=== PATIENT | female | born 1940 | race Caucasian/White ===

== ENCOUNTER 2024-01-27 09:32 | Inpatient (IN) | payer MEDICARE, OTHER, SELFPAY ==
--- NOTE | 2023-12-27 10:08 | CM ---
Addendum entered by Marichuy Somers 01/21/24 13:19:
Spoke again with patient. She will need a rolling walker issued prior to discharge.
Original Note:
Patient is scheduled for an elective R TKR on 01/27/24. Spoke with patient prior to surgery via telephone. Patient had a L TKR (2017) and R THR (2011) at . Reintroduced role of Orthopedic Navigator. Patient reports that she lives alone in a one
story home. There are two steps to enter. She currently functions independently using a cane. She also has a rollator, shower seat and commode. She has had VN services through [facility]. PCP is Preston Palencia.
Discussed orthopedic program and post surgical plans. Reviewed anticipated length of stay and that goal is for her to return home at discharge. Also reviewed outpatient PT. Patient is in agreement with tentative plan but will not have transportation
for outpatient PT and will need VN services (options and PAC data reviewed; patient selects VN). She states that family will stay with her when she first goes home.
Patient will complete online education.
Plan: Orthopedic Navigator will remain available to assist with the care of patient and will reassess discharge needs after surgery.
[2024-01-08 12:46] VITALS: BMI 29.5
[2024-01-08 13:55] LABS: Hematocrit 37.2 % (37.0-47.0); Hemoglobin 12.6 g/dL (12.0-16.0); Mean Corp Hgb Conc. 33.9 g/dL (33.0-37.0); Mean Corpuscular Hgb 30.7 pg (27.0-31.0); Mean Corpuscular Volume 90.7 fL (81.0-99.0); Mean Platelet Volume 11.4 fL (7.4-10.4); Platelet Count 210 10^3/uL (130-400); White Blood Cell Count 5.1 10^3/uL (4.8-10.8)
[2024-01-08 14:29] LABS: ALT (SGPT) 14 U/L (0-35); AST (SGOT) 19 U/L (14-36); Albumin 4.1 g/dl (3.5-5.0); Alkaline Phosphatase 55 U/L (38-126); Blood Urea Nitrogen 15 mg/dl (7-17); Calcium 9.4 mg/dl (8.4-10.2); Carbon Dioxide 28 mmol/L (22-30); Chloride 103 mmol/L (98-107); Estimated Creatinine Clearance 83 ml/min; Glucose 95 mg/dl (70-99); Potassium 4.3 mmol/L (3.5-5.1); Sodium 140 mmol/L (135-145); Total Bilirubin 0.7 mg/dl (0.2-1.3); Total Protein 7.1 g/dl (6.3-8.2); eGFR > 60.00
[2024-01-08 15:02] VITALS: BMI 29.5
[2024-01-09 08:49] LABS: Glycohemoglobin (HgbA1c) 5.5 % (4.0-5.6)
[2024-01-27] VITALS (10 sets, daily range): BP systolic 84–144; BP diastolic 46–75; PULSE 66; BMI 29.5
[2024-01-27] MEDS: TYLENOL 650 MG PO ×3 (10:04→20:12)
[2024-01-27] MEDS: CELEBREX 200 MG PO (10:05)
[2024-01-27] MEDS: NORMOSOL-R 1000 IV ×3 (10:08→15:11)
[2024-01-27] MEDS: DILAUDID 2 MG PO ×2 (16:11→22:27)
--- NOTE | 2024-01-27 16:20 | PTCARENOTE ---
Pt arrived to 2S in bed. Full assessment completed. PRN medication provided for c/o pain to RLE. 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 Christopher wrap to R knee maintained, C/D/I. R hollis becki wrap C/D/I. Pt with
no SCD/David to RLE on admission to the floor due to POA skin tear and R knee DSG. OOB and ambulated in the room/manzo with PT, gait steady Ax1 with the RW. Bed locked and in the lowest position, safety maintained. Oriented to room and call dorota, son
at bedside.
[2024-01-27] MEDS: ASPIRIN 325 MG PO (17:02)
[2024-01-27] MEDS: ANCEF 5 IV (17:02)
[2024-01-27] MEDS: FLUSH (NSS) 2 FLUSH IV (20:11)
[2024-01-27] MEDS: TORADOL 15 MG IV (20:11)
[2024-01-27] MEDS: DECADRON 4 MG PO (20:12)
[2024-01-27] MEDS: SENOKOT 17.1999999999999993 MG PO (20:12)
[2024-01-27] MEDS: COLACE 100 MG PO (20:12)
[2024-01-27] MEDS: BACTROBAN 2% OINTMENT 1 APPLIC NASAL (20:12)
[2024-01-27] MEDS: PEPCID 20 MG PO (22:02)
[2024-01-27] MEDS: NEURONTIN 800 MG PO (22:52)
[2024-01-28] MEDS: TYLENOL PO (01:00)
[2024-01-28] MEDS: ANCEF 5 IV (02:00)
[2024-01-28 03:10] VITALS: BP 112/50
[2024-01-28] MEDS: TYLENOL 650 MG PO ×3 (03:11→12:15)
[2024-01-28 07:28] VITALS: BP 114/49
[2024-01-28] MEDS: DILAUDID 2 MG PO (08:20)
[2024-01-28] MEDS: SENOKOT 17.1999999999999993 MG PO (08:21)
[2024-01-28] MEDS: ASPIRIN 325 MG PO (08:21)
[2024-01-28] MEDS: CELEBREX 200 MG PO (08:21)
[2024-01-28] MEDS: COLACE 100 MG PO (08:21)
[2024-01-28] MEDS: TORADOL 15 MG IV (08:22)
[2024-01-28] MEDS: BACTROBAN 2% OINTMENT 1 APPLIC NASAL (08:23)
--- NOTE | 2024-01-28 09:08 | CM ---
Addendum entered by Marichuy Somers 01/28/24 11:59:
Patient did well in therapy. She has no concerns about going home and has updated her son.
Original Note:
Reviewed chart and held rounds with PT, OT and nursing. Patient admitted as planned for elective R TKR. Met with patient at bedside. Confirmed information previously obtained for assessment. Also discussed discharge plans. The plan is for patient to
return home at discharge. Her children will be staying with her for as long as needed. Reviewed VN services including start of care (tentatively 01/28), services to be ordered (PT, SN) and frequency/duration of services. Options list provided and PAC
data reviewed. Patient selects VN.
Patient has a commode,shower and a cane at home. Patient will need a rolling walker issued at discharge; script obtained and given to PT.
VN referral was completed and sent to [facility] through [employer] with request for start of care on 01/28. Confirmation received of their ability to accept case. file clerk to fax discharge instructions to [facility] when complete.
Patient will use [facility] for discharge prescriptions.
Discharge plans were reviewed with patient's son on 01/26.
[2024-01-28 09:38] VITALS: BP 110/52; PULSE 81
[2024-01-28] MEDS: DECADRON PO (09:39)
[2024-01-28] MEDS: DELTASONE 40 MG PO (10:17)
--- NOTE | 2024-01-28 10:55 | W.PN.ORTHO ---
Today's Communication / Plan
-
d/c
Assessment
.
Distal Motor Intact: Yes
Dressing:
Clean, dry and intact.
Plan
.
Surgery / Date: Kasie Nix 01/27/24
DVT Prophylaxis: Aspirin
Activity:
Out of bed.
PT/OT
Discharge Plan: Home w/ VN
Subjective
.
.:
Patient resting comfortably.
Vital Signs and Labs
.
Vital Signs and Labs:
Lab Results
01/08/24 12:38
01/08/24 12:38
Temp Pulse Resp BP Pulse Ox
97.7 F 66 17 112/50 95
01/28/24 07:28 01/28/24 07:28 01/28/24 07:28 01/28/24 03:10 01/28/24 07:28
Non-invasive Hgb result: 11.1
Physical Exam
-
HEENT: No pallor, cyanosis, or jaundice. Throat clear.
NECK: Supple. No JVD.
RESPIRATORY: Lungs clear to auscultation.
CVS: S1, S2 normal. RRR.� No murmur, rub or gallop.
ABDOMEN: Soft, non-tender. No distension. BS+/normal.
EXTREMITIES: strength equal, no calf pain with palpation
ANIMAL HERDER: AOx3. No focal deficits. gyn physician grossly intact
--- NOTE | 2024-01-28 11:03 | W.DS.TRANS ---
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
-
Discharge Instructions:
Sleep Apnea Risk Low
Discharge Diagnosis/Procedures R TKA 01/27/24
Diet As tolerated
Activity With Walker
Driving Restrictions No driving
Bathing Restrictions OK to Shower
Other Services PT,VN
Instructions:
Stand-Alone Forms: Total Hip/Knee Replacement D/C
Changes to Home Medications: Yes
Discharge Medications:
DC Medications w/original date entered in [employer]
levothyroxine 125 mcg tablet 1 tab PO SUMOWETHFRSA Thyroid 12/19/11
levothyroxine 125 mcg tablet 2 tab PO TU Thyroid 12/19/11
peg 400-propylene glycol (PF) 0.4 %-0.3 % eye drops in a dropperette (Systane (PF)) 1 drp BOTH EYES QIDPRN PRN dry eyes 01/21/18
Prevagan 1 tab PO DAILY Supplement 01/07/24
Turmeric Curcumin 1 tab PO BID Supplement 01/07/24
alpha lipoic acid 600 mg tablet 600 mg PO DAILY Supplement 01/07/24
atorvastatin 10 mg tablet (Lipitor) 10 mg PO DAILY High Cholesterol 01/07/24
biotin 5,000 mcg chewable tablet 5,000 mcg PO DAILY Supplement 01/07/24
calcium 600 mg capsule 600 mg PO BID Supplement 01/07/24
calcium carbonate 500 mg PO PRN PRN reflux 01/07/24
coQ10 (ubiquinol) 200 mg capsule 200 mg PO DAILY Supplement 01/07/24
gabapentin 800 mg tablet 800 mg PO TID Pain 01/07/24
mecobalamin (vitamin B12) 1,000 mcg chewable tablet (B12 Active) 1,000 mcg PO BID Supplement 01/07/24
omega-3 fatty acids-vitamin E 1,000 mg capsule 2 cap PO DAILY Supplement 01/07/24
oxybutynin chloride 5 mg tablet,extended release 24 hr 5 mg PO DAILY Urinary Issue 01/07/24
vitamins A,C,U-dxqm-lntroy 4,296 mcg-226 mg-90 mg capsule (PreserVision AREDS) 1 cap PO BID Supplement 01/07/24
mupirocin 2 % topical ointment 1 applic topical BID infection prevention #1 tube 01/08/24
acetaminophen 500 mg tablet 1,000 mg (2 x 500 mg) PO QID pain #0 tabs 01/28/24
aspirin 325 mg tablet 325 mg PO DAILY blood clot prevention #1 tab 01/28/24
celecoxib 200 mg capsule 200 mg PO DAILY anti-inflammatory #14 caps 01/28/24
diclofenac sodium 1 % topical gel 2 g topical PRN PRN pain #0 grams 01/28/24
docusate sodium 100 mg capsule (Colace) 100 mg PO BID stool softner #1 cap 01/28/24
famotidine 20 mg tablet 20 mg PO HS GI prophylaxis #30 tabs 01/28/24
hydromorphone 2 mg tablet 2 - 4 mg (1 - 2 x 2 mg) PO Q6H PRN 1 tab moderate pain, 2 severe #30 tabs 01/28/24
prednisone 10 mg tablet 40 mg (4 x 10 mg) PO TAPER inflammation #20 tabs 01/28/24
sennosides 8.6 mg tablet (Senokot) 17.2 mg (2 x 8.6 mg) PO BID laxative #2 tabs 01/28/24
Home Medication Changes
celecoxib 200 mg capsule 200 mg PO DAILY anti-inflammatory #14 caps 01/28/24�
famotidine 20 mg tablet 20 mg PO HS GI prophylaxis #30 tabs 01/28/24�
hydromorphone 2 mg tablet 2 - 4 mg (1 - 2 x 2 mg) PO Q6H PRN 1 tab moderate pain, 2 severe #30 tabs 01/28/24�
prednisone 10 mg tablet 40 mg (4 x 10 mg) PO TAPER inflammation #20 tabs 01/28/24�
Pending Results: No
[2024-01-28 11:05] VITALS: BP 97/45
[2024-01-28 11:30] VITALS: BP 97/45; PULSE 68; O2SAT 95
== END 2024-01-28 12:34 | disposition home health service (06) | DRG 470 ==
LOC: 2 SOUTH 09:32
PROVIDERS: ADMITTING PHYSICIAN Specialist; FAMILY PHYSICIAN Physician Assistant Medical
PROC: 0SRC0J9 Replacement of Right Knee Joint with Synthetic Substitute, Cemented, Open Approach (ICD-10-PCS; 2024-01-27)
DX: M17.11 Unilateral primary osteoarthritis, right knee (principal)
CPT/HCPCS: 36415; 73560; 80053; 83036; 85027; 87070; 93005; 97110; 97116; 97161; 97166; 97530; C1713; C1776

== ENCOUNTER → 2024-12-23 17:07 | Outpatient (REF) | payer MEDICARE, OTHER, SELFPAY | LOC: HWRAD 17:07 | PROVIDERS: ATTENDING PHYSICIAN Physician Assistant Medical | DX: R06.02 Shortness of breath (principal) | CPT/HCPCS: 71046 ==

== ENCOUNTER → 2024-12-31 09:57 | Outpatient (REF) | payer MEDICARE, OTHER, SELFPAY | LOC: RCS 09:57 | PROVIDERS: ATTENDING PHYSICIAN Physician Assistant Medical | DX: E78.2 Mixed hyperlipidemia (principal) | CPT/HCPCS: 93017; 93350 ==

== ENCOUNTER → 2025-01-19 15:10 | Outpatient (REF) | payer MEDICARE, OTHER, SELFPAY | LOC: RCS 15:10 | PROVIDERS: ATTENDING PHYSICIAN Internal Medicine Cardiovascular Disease; FAMILY PHYSICIAN Physician Assistant Medical | DX: R06.09 Other forms of dyspnea (principal) | CPT/HCPCS: 93306; Q9950 ==